=== PATIENT | female | born 1940 | race Asian ===

== ENCOUNTER 2017-08-07 12:36 | Emergency (ER) | payer OTHER, MEDICAID ==
[~2017-08-07] VITALS: Ht 172.7 cm; Wt 74.0 kg
[2017-08-07 13:09] VITALS: BP 171/81
[2017-08-07] MEDS ORDERED: DIPHENHYDRAMINE 25MG CAPSULE PO ONE (14:45)
[2017-08-07] MEDS ORDERED: METHYLPREDNISOLONE SOD SUCC 125 MG/2 ML VIAL IM ONE (14:45)
== END 2017-08-07 16:38 | disposition home or self-care (01) ==
LOC: ER 12:36
DX: L23.89 Allergic contact dermatitis due to other agents (principal); I10 Essential (primary) hypertension; E11.9 Type 2 diabetes mellitus without complications; Z90.49 Acquired absence of other specified parts of digestive tract; Z88.8 Allergy status to other drugs, medicaments and biological substances
CPT/HCPCS: 96372; 99283; J2930; Q0163